=== PATIENT | male | born 1970 | race Caucasian/White ===

== ENCOUNTER 2017-04-27 20:46 | Emergency (ER) | payer OTHER ==
[~2017-04-27] VITALS: Ht 172.7 cm; Wt 110.0 kg
[~2017-04-27 20:46] MED LIST: LOTR5CAP2 PO; ZOCO40TA PO
[2017-04-27 20:48] VITALS: BP 147/84; PULSE 56; RESP 16; TEMP 98.5; O2SAT 96
[2017-04-27] MEDS ORDERED: AMLO5CAP PO (21:01)
[2017-04-27] MEDS ORDERED: SIMV20TA PO (21:01)
--- NOTE | 2017-04-27 21:11 | PD ---
HPI Chief Complaint: Edema Time Seen by Provider: 21:00 Travel History International Travel<30 days: No Contact w/Intl Traveler<30days: No Traveled to known affect area: No History of Present Illness HPI This is a 46-year-old male who presents to the emergency department with right lower extremity swelling. Patient one week ago was doing work on the ground and had his knees on the gravel for a long period of time. A day after he noticed that the area around his knee was swollen. Since then he's had increasing swelling of the calf and he started to notice some bruising around his ankle and some discoloration along his knee that concerned him. The swelling has been constant, worsening, with no associated numbness or weakness. He denies any severe pain, but reports a little bit of discomfort involving his right ankle with movement. He denies any fevers or chills. He has no history of diabetes or IV drug use. PFSH Past Medical History High Cholesterol: Yes Diminished Hearing: No Hypertension: Yes Tetanus Vaccination: Unknown Past Surgical History Surgical History: No Previous Surgery Social History Alcohol Use: Yes (OCASSIONALLY) Tobacco Use: No Substance Use: No Allergies-Medications (Allergen,Severity, Reaction): Coded Allergies: No Known Allergies (Unverified , 04/27/17) Reported Meds & Prescriptions Reported Meds & Active Scripts Active Reported Simvastatin 20 Mg Tab 20 Mg PO DAILY Amlodipine-Benazepril 5-10 Mg Cap 1 Cap PO DAILY Review of Systems Except as stated in HPI: all other systems reviewed are Neg Physical Exam Narrative GENERAL:Well appearing, no acute distress SKIN: Some ecchymoses along the medial aspect of the right knee and right ankle HEAD: Atraumatic. Normocephalic. EYES: Pupils equal and round. No injection or drainage. ENT: Moist mucous membranes NECK: Trachea midline. CARDIOVASCULAR: Regular rate and rhythm. No murmur appreciated. RESPIRATORY: Clear to auscultation. Breath sounds equal bilaterally. GASTROINTESTINAL: Abdomen soft, non-tender, nondistended. MUSCULOSKELETAL: Swelling of the right prepatellar bursa with minimal warmth, full painless range of motion of the right knee and right ankle. Swelling extends along the right calf down to the right ankle NEUROLOGICAL: Awake and alert. No obvious cranial nerve deficits. 2+ DP pulses bilaterally. Normal capillary refill in both feet. PSYCHIATRIC: Appropriate mood and affect; insight and judgment normal. Data Data Last Documented VS Vital Signs Date Time Temp Pulse Resp B/P Pulse Ox O2 Delivery O2 Flow Rate FiO2 04/27/17 20:48 98.5 56 16 147/84 96 Room Air Orders Complete Blood Count With Diff (04/27/17 21:08) Comprehensive Metabolic Panel (04/27/17 21:08) ^ Insert Iv (04/27/17 21:08) Prothrombin Time / Inr (Pt) (04/27/17 21:08) Act Partial Throm Time (Ptt) (04/27/17 21:08) Us Leg Venous Doppler (04/27/17 ) Labs Laboratory Tests Test 04/27/17 21:10 White Blood Count 8.7 TH/MM3 Red Blood Count 4.86 MIL/MM3 Hemoglobin 15.0 GM/DL Hematocrit 42.9 % Mean Corpuscular Volume 88.3 FL Mean Corpuscular Hemoglobin 30.9 PG Mean Corpuscular Hemoglobin 35.0 % Concent Red Cell Distribution Width 12.9 % Platelet Count 263 TH/MM3 Mean Platelet Volume 7.8 FL Neutrophils (%) (Auto) 49.3 % Lymphocytes (%) (Auto) 39.0 % Monocytes (%) (Auto) 7.7 % Eosinophils (%) (Auto) 3.5 % Basophils (%) (Auto) 0.5 % Neutrophils # (Auto) 4.3 TH/MM3 Lymphocytes # (Auto) 3.4 TH/MM3 Monocytes # (Auto) 0.7 TH/MM3 Eosinophils # (Auto) 0.3 TH/MM3 Basophils # (Auto) 0.0 TH/MM3 CBC Comment DIFF FINAL Differential Comment Prothrombin Time 10.7 SEC Prothromb Time International 1.0 RATIO Ratio Activated Partial 26.7 SEC Thromboplast Time Sodium Level 141 MEQ/L Potassium Level 3.8 MEQ/L Chloride Level 105 MEQ/L Carbon Dioxide Level 27.8 MEQ/L Anion Gap 8 MEQ/L Blood Urea Nitrogen 13 MG/DL Creatinine 1.07 MG/DL Estimat Glomerular Filtration 75 ML/MIN Rate Random Glucose 151 MG/DL Calcium Level 8.6 MG/DL Total Bilirubin 0.3 MG/DL Aspartate Amino Transf 25 U/L (AST/SGOT) Alanine Aminotransferase 32 U/L (ALT/SGPT) Alkaline Phosphatase 60 U/L Total Protein 7.1 GM/DL Albumin 3.8 GM/DL MDM Medical Decision Making Medical Screen Exam Complete: Yes Emergency Medical Condition: Yes Interpretation(s) Afebrile, bradycardic, mild hypertension No leukocytosis Electrolytes are reassuring Coags are normal Ultrasound is negative for DVT Differential Diagnosis Bursitis, septic arthritis, osteoarthritis, fracture, sprain Narrative Course This is a 46-year-old male who presents to the emergency department with right lower extremity swelling that's been going on for 1 week after he was kneeling on some gravel for a long period of time when working. His swelling initially started in his knee but has since spread to his calf and his ankle. He appears to have a bursitis involving the right knee which I don't think is infectious. I think is swelling his injury related. Labs were obtained which were reassuring with no leukocytosis and an ultrasound was obtained which is negative for DVT. I think he's safe to follow-up with orthopedics as an outpatient. I did discuss with him repeating his ultrasound in 10 days if he doesn't improve. Diagnosis Primary Impression: Prepatellar bursitis Qualified Code: M70.41 - Prepatellar bursitis of right knee Referrals: [facility] Patient Instructions: General Instructions Additional Instructions: If you develop fever, chills, increasing pain in your right knee or leg, difficulty moving her leg or chest pain or shortness of breath return to the emergency department. Rest, ice, elevate your leg and use an Casa wrap. Take ibuprofen or Aleve as needed for swelling or pain. Follow-up with an orthopedic doctor as soon as possible. Med/Other Pt SpecificInfo: No Change to Meds Disposition: 01 DISCHARGE HOME Condition: Stable Criss Tello MD Apr 27, 2017 21:11
[2017-04-27 21:36] LABS: AUTOMATED NEUTROPHIL # 4.3 TH/MM3 (1.8-7.7); BASOPHIL % 0.5 % (0.0-2.0); EOSINOPHIL # 0.3 TH/MM3 (0-0.4); EOSINOPHIL % 3.5 % (0.0-4.0); HEMATOCRIT 42.9 % (39.0-51.0); HEMO FLAGS DIFF FINAL; LYMPHOCYTE # 3.4 TH/MM3 (1.0-4.8); MEAN CELL VOLUME 88.3 FL (80.0-100.0); MEAN CORPUSCULAR HEMOGLOBIN 30.9 PG (27.0-34.0); MONO % 7.7 % (0.0-8.0); NEUT % 49.3 % (16.0-70.0); PLATELET COUNT 263 TH/MM3 (150-450); RED BLOOD COUNT 4.86 MIL/MM3 (4.50-5.90); RED CELL DISTRIBUTION WIDTH 12.9 % (11.6-17.2); WHITE BLOOD COUNT 8.7 TH/MM3 (4.0-11.0)
[2017-04-27 21:41] LABS: APTT (PATIENT) 26.7 SEC (24.3-30.1); PROTHROMBIN TIME - PATIENT 10.7 SEC (9.8-11.6)
[2017-04-27 21:57] LABS: ANION GAP 8 MEQ/L (5-15); AST (GOT) 25 U/L (15-37); BICARBONATE 27.8 MEQ/L (21.0-32.0); BLOOD UREA NITROGEN 13 MG/DL (7-18); CHLORIDE 105 MEQ/L (98-107); GLOMERULAR FILTRATION RATE 75 ML/MIN (>89); POTASSIUM 3.8 MEQ/L (3.5-5.1); SODIUM (NA) 141 MEQ/L (136-145)
[2017-04-27 21:58] LABS: ALT (GPT) 32 U/L (12-78)
[2017-04-27 22:00] LABS: ALKALINE PHOSPHATASE 60 U/L (45-117); TOTAL BILIRUBIN ADULT 0.3 MG/DL (0.2-1.0)
--- NOTE | 2017-04-27 23:22 | RADRPT ---
EXAM DATE/TIME: 04/27/2017 22:23 [place] COMPARISON: No previous studies available for comparison. INDICATIONS : Right leg swelling. MEDICAL HISTORY : Hypercholesterolemia. Hypertension. SURGICAL HISTORY : None. ENCOUNTER: Initial ACUITY: 1 week PAIN SCORE: 0/10 LOCATION: Right leg. TECHNIQUE: Venous ultrasound of the leg was performed from the inguinal ligament to the proximal calf. Real-santo e, color Doppler and spectral tracing, compression and augmentation techniques were used. FINDINGS: There is normal compressibility of the deep venous system from the inguinal region to the proximal ca lf. No echogenic clot is seen in the lumen of the common femoral, femoral, popliteal, and posterior tibial veins. There is a normal response of the venous system to proximal and distal augmentation an d respiration. CONCLUSION: Normal examination. Debi Whipple MD on April 27, 2017 at 23:21 Board Certified Radiologist. This report was verified electronically.
[2017-04-27 23:45] VITALS: BP 139/87
== END 2017-04-27 23:45 | disposition home or self-care (01) ==
LOC: NEPD 20:46
DX: M70.41 Prepatellar bursitis, right knee (principal); I10 Essential (primary) hypertension
CPT/HCPCS: 80053; 85025; 85610; 85730; 93971; 99284